=== PATIENT | female | born 1960 | race African-American/Black ===

== ENCOUNTER 2018-03-17 11:20 | Inpatient (IN) | payer MEDICAID ==
[~2018-03-17] VITALS: Ht 167.6 cm; Wt 103.9 kg
[~2018-03-17 11:20] MED LIST: AMLO10TA80 PO; ASPI-1159 PO; BENA20TA10 PO; CARV6.2548 PO; CLOP75TA16 PO; FLUT1DIS5 IH; FURO-151 PO; LIP40 PO; METF500T3 PO; POTA10TA15 PO; VENTOLIN INH
[2018-03-17 15:21] LABS: BASOPHILS % 0.6 % (0.0-2.0); EOSINOPHILS % 0.5 % (0.0-5.0); HEMATOCRIT. 35.9 % (36.0-48.0); HEMOGLOBIN. 11.9 g/dL (12.0-16.0); LYMPHOCYTES % 31.3 % (20.0-50.0); MEAN CORPUSCULAR HEMOGLOBIN 31.3 pg (28.0-32.0); MEAN CORPUSCULAR VOLUME 94.3 fL (81.0-99.0); MEAN PLATELET VOLUME 8.1 fl (7.4-10.4); MONOCYTES % 4.5 % (2.0-8.0); NEUTROPHILS % 63.1 % (40.0-76.0); PLATELET 187 x1000/uL (130-400); RED BLOOD CELL COUNT 3.81 mill/uL (4.2-5.4)
[2018-03-17 15:23] LABS: INR 1.1; PARTIAL THROMBOPLASTIN TIME 25.9 sec (23.4-31.0); PROTHROMBIN TIME 11.4 sec (9.1-11.1)
[2018-03-17 15:24] LABS: CHLORIDE 101 mEq/L (98-107)
[2018-03-17] MEDS ORDERED: MORPHINE SULFATE 4 MG/ML CPJ (NOT FOR IM USE) IV STA (15:28)
[2018-03-17] MEDS ORDERED: ONDANSETRON HCL 4MG/2ML INJ IV STA (15:28)
[2018-03-17] MEDS ORDERED: NITROGLYCERIN 0.4MG TABLET SL SL PRN (15:30)
[2018-03-17] MEDS ORDERED: ASPIRIN 81MG TABLET PO ONE (15:30)
[2018-03-17] MEDS ORDERED: NITROGLYCERIN OINT 1GM/INCH UDPKT TD ONE (15:30)
[2018-03-17] MEDS ORDERED: FUROSEMIDE 40MG/4ML VIAL IV ONE (15:30)
[2018-03-17] MEDS ORDERED: ACETAMINOPHEN 650MG/20.3ML UDC GT PRN (17:30)
[2018-03-17] MEDS ORDERED: HYDROCODONE/ACETAMINOPHEN 5/325MG TABLET PO PRN (17:30)
[2018-03-17] MEDS ORDERED: ACETAMINOPHEN 325MG TABLET PO PRN (17:30)
[2018-03-17] MEDS ORDERED: MAGNESIUM/ALUMINUM HYDROXIDE/SIMETHICONE 30ML UDC PO PRN (17:30)
[2018-03-17] MEDS ORDERED: ONDANSETRON HCL 4MG/2ML INJ IV PRN (17:30)
[2018-03-17] MEDS ORDERED: CLONIDINE 0.1MG TABLET PO PRN (17:30)
[2018-03-17] MEDS ORDERED: ACETAMINOPHEN 650MG SUPP PR PRN (17:30)
[2018-03-17 18:45] VITALS: BP 128/76
[2018-03-17 20:00] VITALS: BP 129/79
[2018-03-17] MEDS: FUROSEMIDE 40MG/4ML VIAL IVP SCH (21:33)
[2018-03-17] MEDS: ATORVASTATIN CALCIUM 40MG TABLET PO SCH (21:33)
[2018-03-17] MEDS: BENAZEPRIL 10MG TABLET PO SCH (21:34)
[2018-03-17] MEDS: CARVEDILOL 6.25 MG TABLET PO SCH (21:34)
[2018-03-18 00:40] VITALS: BP 122/72
[2018-03-18 01:03] LABS: CREATINE KINASE 43 IU/L (26-192); CREATINE KINASE MB FRACTION < 1.0 ng/mL (0.5-3.6)
[2018-03-18 04:00] VITALS: BP 131/53
[2018-03-18 04:07] LABS: CLARITY URINE CLEAR (CLEAR); COLOR URINE YELLOW (YELLOW); KETONES URINE NEGATIVE (NEGATIVE); LEUKOCYTE ESTERASE URINE NEGATIVE (NEGATIVE); NITRITE URINE NEGATIVE (NEGATIVE); OCCULT BLOOD URINE NEGATIVE (NEGATIVE); PROTEIN URINE NEGATIVE (NEGATIVE)
[2018-03-18 04:48] LABS: PHENCYCLIDINE URINE SCREEN NEGATIVE (NEGATIVE)
[2018-03-18 04:49] LABS: *AMPHETAMINES SCREEN URINE NEGATIVE (NEGATIVE); *BARBITURATES SCREEN URINE NEGATIVE (NEGATIVE); *BENZODIAZEPINES SCREEN URINE NEGATIVE (NEGATIVE); *COCAINE SCREEN URINE NEGATIVE (NEGATIVE); CANNABINOID URINE SCREEN NEGATIVE (NEGATIVE); METHADONE URINE SCREEN NEGATIVE (NEGATIVE); OPIATES URINE SCREEN NEGATIVE (NEGATIVE)
[2018-03-18 06:33] LABS: BASOPHILS % 0.5 % (0.0-2.0); EOSINOPHILS % 0.7 % (0.0-5.0); HEMATOCRIT. 34.4 % (36.0-48.0); HEMOGLOBIN. 11.5 g/dL (12.0-16.0); LYMPHOCYTES % 38.5 % (20.0-50.0); MEAN CORPUSCULAR HEMOGLOBIN 31.1 pg (28.0-32.0); MEAN CORPUSCULAR VOLUME 93.3 fL (81.0-99.0); MEAN PLATELET VOLUME 8.7 fl (7.4-10.4); MONOCYTES % 5.3 % (2.0-8.0); PLATELET 179 x1000/uL (130-400); RED BLOOD CELL COUNT 3.69 mill/uL (4.2-5.4); RED CELL DISTRIBUTION WIDTH 16.1 % (11.6-14.6)
[2018-03-18] MEDS: FUROSEMIDE 40MG/4ML VIAL IVP SCH ×4 (06:49→21:08)
[2018-03-18 06:51] LABS: CHLORIDE 99 mEq/L (98-107)
[2018-03-18 07:13] LABS: CREATINE KINASE 43 IU/L (26-192); CREATINE KINASE MB FRACTION < 1.0 ng/mL (0.5-3.6); HDL CHOLESTEROL 33 mg/dL (40-59); LDL CHOLESTEROL 131 mg/dL (5-100); T4 FREE 1.31 ng/dL (0.76-1.46)
[2018-03-18 07:33] VITALS: BP 107/63
[2018-03-18] MEDS: BENAZEPRIL 10MG TABLET PO SCH (09:00)
[2018-03-18] MEDS: CARVEDILOL 6.25 MG TABLET PO SCH (09:00)
[2018-03-18] MEDS ORDERED: AMLODIPINE 10MG TABLET PO SCH (09:00)
[2018-03-18] MEDS: CLOPIDOGREL 75MG TABLET PO SCH (09:40)
[2018-03-18] MEDS: METFORMIN HCL 500MG TABLET PO SCH (09:40)
[2018-03-18] MEDS: ASPIRIN 81MG TABLET PO SCH (09:40)
[2018-03-18] MEDS: HYDROCODONE/ACETAMINOPHEN 10/325MG TABLET PO PRN (09:56)
[2018-03-18] MEDS: IPRATROPIUM/ALBUTEROL 0.5-3(2.5)MG/3ML NEB INH SCH ×4 (10:06→20:49)
[2018-03-18 11:26] VITALS: BP 108/58
[2018-03-18] MEDS ORDERED: IPRATROPIUM/ALBUTEROL 0.5-3(2.5)MG/3ML NEB HHN PRN (13:45)
[2018-03-18 15:30] VITALS: BP 114/59
[2018-03-18] MEDS ORDERED: SENNOSIDES/DOCUSATE SOD 8.6/50MG TABLET PO PRN (16:45)
[2018-03-18 20:00] VITALS: BP 107/77
[2018-03-18] MEDS: BUDESONIDE 0.5MG/2ML NEB HHN SCH (20:48)
[2018-03-18] MEDS: ATORVASTATIN CALCIUM 40MG TABLET PO SCH (20:50)
[2018-03-18] MEDS: CARVEDILOL 3.125 MG TABLET PO SCH (20:50)
[2018-03-19] VITALS: BP 102/68
[2018-03-19] MEDS: IPRATROPIUM/ALBUTEROL 0.5-3(2.5)MG/3ML NEB INH SCH ×3 (00:15→20:33)
[2018-03-19 04:00] VITALS: BP 124/72
[2018-03-19] MEDS: FUROSEMIDE 40MG/4ML VIAL IVP SCH ×3 (05:41→21:43)
[2018-03-19 08:00] VITALS: BP 101/71
[2018-03-19 08:03] LABS: BASOPHILS % 0.5 % (0.0-2.0); EOSINOPHILS % 0.9 % (0.0-5.0); HEMATOCRIT. 35.3 % (36.0-48.0); HEMOGLOBIN. 11.5 g/dL (12.0-16.0); LYMPHOCYTES % 31.3 % (20.0-50.0); MEAN CORPUSCULAR HEMOGLOBIN 30.9 pg (28.0-32.0); MEAN CORPUSCULAR VOLUME 94.6 fL (81.0-99.0); MEAN PLATELET VOLUME 8.9 fl (7.4-10.4); MONOCYTES % 4.3 % (2.0-8.0); PLATELET 191 x1000/uL (130-400); RED BLOOD CELL COUNT 3.73 mill/uL (4.2-5.4); RED CELL DISTRIBUTION WIDTH 15.9 % (11.6-14.6)
[2018-03-19] MEDS: ASPIRIN 81MG TABLET PO SCH (08:57)
[2018-03-19] MEDS: CLOPIDOGREL 75MG TABLET PO SCH (08:57)
[2018-03-19] MEDS: METFORMIN HCL 500MG TABLET PO SCH (08:57)
[2018-03-19] MEDS: DOCUSATE SODIUM 100MG CAPSULE PO SCH ×2 (08:57→09:00)
[2018-03-19] MEDS: POLYETHYLENE GLYCOL 3350 (17GM) 1 DOSE PACK PO SCH ×3 (08:58→18:15)
[2018-03-19] MEDS: CARVEDILOL 3.125 MG TABLET PO SCH ×2 (09:00→21:43)
[2018-03-19 11:03] LABS: CHLORIDE 98 mEq/L (98-107)
[2018-03-19 11:10] LABS: PHOSPHORUS 4.9 mg/dL (2.5-4.9)
[2018-03-19 12:50] VITALS: BP 101/71
[2018-03-19 13:00] VITALS: BP 134/85
[2018-03-19] MEDS ORDERED: POTASSIUM CHLORIDE 20MEQ TABLET SR PO NR (13:30)
[2018-03-19] MEDS: POTASSIUM CHLORIDE 20MEQ TABLET SR PO SCH (18:15)
[2018-03-19 20:00] VITALS: BP 122/78
[2018-03-19] MEDS ORDERED: MAGNESIUM SULFATE 2 GM in DEXTROSE 5% WATER 50 ML IV SCH (20:00)
[2018-03-19] MEDS: BUDESONIDE 0.5MG/2ML NEB HHN SCH (20:33)
[2018-03-19] MEDS: ATORVASTATIN CALCIUM 40MG TABLET PO SCH (21:42)
[2018-03-20] VITALS: BP 124/83
[2018-03-20] MEDS: IPRATROPIUM/ALBUTEROL 0.5-3(2.5)MG/3ML NEB INH SCH ×6 (00:02→21:10)
[2018-03-20] MEDS: HYDROCODONE/ACETAMINOPHEN 10/325MG TABLET PO PRN (03:23)
[2018-03-20 04:00] VITALS: BP 132/87
[2018-03-20] MEDS: FUROSEMIDE 40MG/4ML VIAL IVP SCH (06:08)
[2018-03-20 07:30] LABS: BASOPHILS % 0.6 % (0.0-2.0); EOSINOPHILS % 0.7 % (0.0-5.0); HEMATOCRIT. 35.7 % (36.0-48.0); HEMOGLOBIN. 11.6 g/dL (12.0-16.0); LYMPHOCYTES % 27.2 % (20.0-50.0); MEAN CORPUSCULAR HEMOGLOBIN 30.8 pg (28.0-32.0); MEAN CORPUSCULAR VOLUME 94.7 fL (81.0-99.0); MEAN PLATELET VOLUME 8.8 fl (7.4-10.4); MONOCYTES % 4.5 % (2.0-8.0); PLATELET 197 x1000/uL (130-400); RED BLOOD CELL COUNT 3.77 mill/uL (4.2-5.4); RED CELL DISTRIBUTION WIDTH 15.8 % (11.6-14.6)
[2018-03-20 07:52] LABS: CHLORIDE 98 mEq/L (98-107)
[2018-03-20 08:00] VITALS: BP 119/78
[2018-03-20] MEDS: POLYETHYLENE GLYCOL 3350 (17GM) 1 DOSE PACK PO SCH ×2 (09:00→17:00)
[2018-03-20] MEDS: ASPIRIN 81MG TABLET PO SCH (09:22)
[2018-03-20] MEDS: DOCUSATE SODIUM 100MG CAPSULE PO SCH (09:22)
[2018-03-20] MEDS: POTASSIUM CHLORIDE 20MEQ TABLET SR PO SCH ×2 (09:23→17:16)
[2018-03-20] MEDS: BENAZEPRIL 10MG TABLET PO SCH (09:23)
[2018-03-20] MEDS: CARVEDILOL 3.125 MG TABLET PO SCH ×2 (09:23→21:45)
[2018-03-20] MEDS: CLOPIDOGREL 75MG TABLET PO SCH (09:23)
[2018-03-20] MEDS: METFORMIN HCL 500MG TABLET PO SCH (09:24)
[2018-03-20] MEDS: AMLODIPINE 5MG TABLET PO SCH (09:24)
[2018-03-20 12:00] VITALS: BP 110/69
[2018-03-20 16:00] VITALS: BP 120/74
[2018-03-20] MEDS ORDERED: FURO80TA3 MT (16:02)
[2018-03-20] MEDS ORDERED: AMLO5TAB88 PO (16:02)
[2018-03-20] MEDS ORDERED: LOT10 PO (16:02)
[2018-03-20] MEDS ORDERED: POTA20TA82 PO (16:02)
[2018-03-20] MEDS ORDERED: POLY17PO3 PO (16:02)
[2018-03-20] MEDS ORDERED: COR3 PO (16:02)
[2018-03-20] MEDS: FUROSEMIDE 40MG TABLET PO SCH ×2 (16:15→21:45)
[2018-03-20 20:56] VITALS: BP 127/80
[2018-03-20] MEDS: BUDESONIDE 0.5MG/2ML NEB HHN SCH (21:10)
[2018-03-20] MEDS: ATORVASTATIN CALCIUM 40MG TABLET PO SCH (21:44)
[2018-03-21] VITALS: BP 129/78
[2018-03-21 04:00] VITALS: BP 126/74
[2018-03-21] MEDS: IPRATROPIUM/ALBUTEROL 0.5-3(2.5)MG/3ML NEB INH SCH ×3 (04:25→11:56)
[2018-03-21] MEDS: FUROSEMIDE 40MG TABLET PO SCH (06:07)
[2018-03-21 08:00] VITALS: BP 130/87
[2018-03-21] MEDS: BUDESONIDE 0.5MG/2ML NEB HHN SCH (08:23)
[2018-03-21] MEDS: POLYETHYLENE GLYCOL 3350 (17GM) 1 DOSE PACK PO SCH (09:00)
[2018-03-21] MEDS: DOCUSATE SODIUM 100MG CAPSULE PO SCH (09:12)
[2018-03-21] MEDS: BENAZEPRIL 10MG TABLET PO SCH (09:13)
[2018-03-21] MEDS: CARVEDILOL 3.125 MG TABLET PO SCH (09:13)
[2018-03-21] MEDS: ASPIRIN 81MG TABLET PO SCH (09:13)
[2018-03-21] MEDS: CLOPIDOGREL 75MG TABLET PO SCH (09:13)
[2018-03-21] MEDS: AMLODIPINE 5MG TABLET PO SCH (09:13)
[2018-03-21] MEDS: POTASSIUM CHLORIDE 20MEQ TABLET SR PO SCH (09:13)
[2018-03-21] MEDS: METFORMIN HCL 500MG TABLET PO SCH (09:13)
[2018-03-21 11:35] VITALS: BP 130/87
[2018-03-21 12:00] VITALS: BP 114/68
== END 2018-03-21 12:55 | disposition home or self-care (01) | DRG 194 ==
LOC: ER 12:20 → ENRESERV 15:42 → EDBEDREQTM 15:54 → EDBEDREQ 15:54 → 7WST 16:07 → EDBEDREQTM 16:09
PROVIDERS: ADMIT Internal Medicine; ATTEND Internal Medicine
DX: I11.0 Hypertensive heart disease with heart failure (principal); J96.00 Acute respiratory failure, unspecified whether with hypoxia or hypercapnia; I27.20 Pulmonary hypertension, unspecified; D64.9 Anemia, unspecified; E11.9 Type 2 diabetes mellitus without complications; E78.00 Pure hypercholesterolemia, unspecified; I25.5 Ischemic cardiomyopathy; I50.23 Acute on chronic systolic (congestive) heart failure; E78.5 Hyperlipidemia, unspecified; I25.10 Atherosclerotic heart disease of native coronary artery without angina pectoris; F17.210 Nicotine dependence, cigarettes, uncomplicated; J44.9 Chronic obstructive pulmonary disease, unspecified; I08.0 Rheumatic disorders of both mitral and aortic valves; M25.511 Pain in right shoulder; K59.00 Constipation, unspecified; Z60.2 Problems related to living alone; Z79.899 Other long term (current) drug therapy; I25.2 Old myocardial infarction; Z86.73 Personal history of transient ischemic attack (TIA), and cerebral infarction without residual deficits; Z98.891 History of uterine scar from previous surgery; Z95.5 Presence of coronary angioplasty implant and graft; Z79.82 Long term (current) use of aspirin; Z79.84 Long term (current) use of oral hypoglycemic drugs; M94.0 Chondrocostal junction syndrome [Tietze]
CPT/HCPCS: 36415; 71045; 73030; 80048; 80061; 80305; 82550; 82553; 82962; 83036; 83735; 83880; 84100; 84439; 84443; 84481; 84484; 93005; 93306; 93970; 94640; 96374; 96375; 97162; 99285; J1940; J2270; J3475; J7050; J7060; J7620; J7626

== ENCOUNTER 2018-04-18 18:27 | Inpatient (IN) | payer OTHER ==
[~2018-04-18] VITALS: Ht 167.6 cm; Wt 110.7 kg
[~2018-04-18 18:27] MED LIST changes: -AMLO10TA80 PO; +AMLO5TAB88 PO; -BENA20TA10 PO; -CARV6.2548 PO; +COR3 PO; -FURO-151 PO; +FURO80TA3 MT; +LOT10 PO; +POLY17PO3 PO; +POTA20TA82 PO
[2018-04-18] MEDS ORDERED: ALBUTEROL (0.083%) 2.5MG/3ML NEB HHN STA (23:05)
[2018-04-18] MEDS ORDERED: IPRATROPIUM BROMIDE (0.02%) 0.5MG/2.5ML NEB HHN STA (23:05)
[2018-04-18] MEDS ORDERED: NITROGLYCERIN OINT 1GM/INCH UDPKT TD ONE (23:15)
[2018-04-18] MEDS ORDERED: ASPIRIN 81MG TABLET PO ONE (23:15)
[2018-04-18 23:50] LABS: BASOPHILS % 0.7 % (0.0-2.0); EOSINOPHILS % 0.6 % (0.0-5.0); HEMATOCRIT. 38.3 % (36.0-48.0); HEMOGLOBIN. 12.5 g/dL (12.0-16.0); LYMPHOCYTES % 35.1 % (20.0-50.0); MEAN CORPUSCULAR VOLUME 95.1 fL (81.0-99.0); MEAN PLATELET VOLUME 10.1 fl (7.4-10.4); MONOCYTES % 5.5 % (2.0-8.0); NEUTROPHILS % 58.1 % (40.0-76.0); PLATELET 188 x1000/uL (130-400); RED BLOOD CELL COUNT 4.03 mill/uL (4.2-5.4); RED CELL DISTRIBUTION WIDTH 17.3 % (11.6-14.6)
[2018-04-19 00:57] LABS: CHLORIDE 98 mEq/L (98-107)
[2018-04-19] MEDS ORDERED: ONDANSETRON HCL 4MG/2ML INJ IV PRN (12:45)
[2018-04-19] MEDS ORDERED: GUAIFENESIN 200MG/10ML SUGAR FREE UDC PO PRN (12:45)
[2018-04-19] MEDS ORDERED: HYDROCODONE/ACETAMINOPHEN 5/325MG TABLET PO PRN (12:45)
[2018-04-19] MEDS ORDERED: IPRATROPIUM/ALBUTEROL 0.5-3(2.5)MG/3ML NEB INH PRN (12:45)
[2018-04-19] MEDS ORDERED: MAGNESIUM/ALUMINUM HYDROXIDE/SIMETHICONE 30ML UDC PO PRN (12:45)
[2018-04-19 16:00] VITALS: BP 123/84
[2018-04-19] MEDS ORDERED: POLYETHYLENE GLYCOL PO SCH (17:00)
[2018-04-19 18:00] VITALS: BP 108/72
[2018-04-19] MEDS ORDERED: DIPHENHYDRAMINE HCL/ZINC ACET 28 GM CREAM TOP PRN (18:00)
[2018-04-19] MEDS: POLYETHYLENE GLYCOL 3350 (17GM) 1 DOSE PACK PO SCH (18:34)
[2018-04-19] MEDS: ATORVASTATIN CALCIUM 40MG TABLET PO SCH (18:34)
[2018-04-19] MEDS: FUROSEMIDE 40MG/4ML VIAL IVP SCH (18:50)
[2018-04-19] MEDS ORDERED: DEXTROSE 50% WATER 50ML SYRINGE IV PRN (19:45)
[2018-04-19 20:00] VITALS: BP 95/70
[2018-04-19 20:29] LABS: CREATINE KINASE 53 IU/L (26-192)
[2018-04-19 20:30] LABS: CREATINE KINASE MB FRACTION < 1.0 ng/mL (0.5-3.6)
[2018-04-19] MEDS: CARVEDILOL 3.125 MG TABLET PO SCH (21:00)
[2018-04-19] MEDS: BUDESONIDE 0.5MG/2ML NEB HHN SCH (21:22)
[2018-04-19] MEDS: IPRATROPIUM/ALBUTEROL 0.5-3(2.5)MG/3ML NEB HHN SCH (21:22)
[2018-04-19] MEDS: BLOOD SUGAR DIAGNOSTIC STRIP TEST SCH (21:59)
[2018-04-19] MEDS ORDERED: INSULIN GLARGINE UD 100 UNITS/ML SYR SUBCUT SCH (22:00)
[2018-04-19] MEDS: INSULIN LISPRO 100 UNITS/ML SUBCUT SCH (22:52)
[2018-04-19 23:08] VITALS: BP 95/70
[2018-04-20] VITALS (7 sets, daily range): BP systolic 95–111; BP diastolic 54–83
[2018-04-20] MEDS: INSULIN GLARGINE UD 100 UNITS/ML SYR SUBCUT SCH ×2 (00:26→10:44)
[2018-04-20] MEDS: IPRATROPIUM/ALBUTEROL 0.5-3(2.5)MG/3ML NEB HHN SCH ×4 (01:45→21:13)
[2018-04-20] MEDS: BLOOD SUGAR DIAGNOSTIC STRIP TEST SCH ×4 (05:56→20:52)
[2018-04-20] MEDS: INSULIN LISPRO 100 UNITS/ML SUBCUT SCH ×3 (06:13→21:11)
[2018-04-20 07:40] LABS: BASOPHILS % 0.5 % (0.0-2.0); EOSINOPHILS % 0.5 % (0.0-5.0); HEMATOCRIT. 37.2 % (36.0-48.0); HEMOGLOBIN. 12.3 g/dL (12.0-16.0); LYMPHOCYTES % 41.7 % (20.0-50.0); MEAN CORPUSCULAR HEMOGLOBIN 31.3 pg (28.0-32.0); MEAN CORPUSCULAR VOLUME 94.1 fL (81.0-99.0); MEAN PLATELET VOLUME 8.9 fl (7.4-10.4); MONOCYTES % 5.1 % (2.0-8.0); NEUTROPHILS % 52.2 % (40.0-76.0); PLATELET 164 x1000/uL (130-400); RED BLOOD CELL COUNT 3.95 mill/uL (4.2-5.4); RED CELL DISTRIBUTION WIDTH 16.9 % (11.6-14.6)
[2018-04-20] MEDS: BUDESONIDE 0.5MG/2ML NEB HHN SCH ×2 (08:50→21:13)
[2018-04-20] MEDS ORDERED: MEDICATION NOT ON FORMULARY EA (Amlodipine Besylate 5 MG) PO SCH (09:00)
[2018-04-20] MEDS ORDERED: FUROSEMIDE 40MG/4ML VIAL IVP SCH (09:00)
[2018-04-20] MEDS: ASPIRIN 81MG TABLET PO SCH (09:00)
[2018-04-20] MEDS ORDERED: MEDICATION NOT ON FORMULARY EA (Clopidogrel Bisulfate (Plavix) 75 MG) PO SCH (09:00)
[2018-04-20 09:10] LABS: CHLORIDE 98 mEq/L (98-107)
[2018-04-20 09:17] LABS: LDL CHOLESTEROL 79 mg/dL (5-100)
[2018-04-20 09:18] LABS: CREATINE KINASE 49 IU/L (26-192); CREATINE KINASE MB FRACTION < 1.0 ng/mL (0.5-3.6); HDL CHOLESTEROL 25 mg/dL (40-59); T4 FREE 1.32 ng/dL (0.76-1.46)
[2018-04-20] MEDS: CLOPIDOGREL 75MG TABLET PO SCH (10:16)
[2018-04-20] MEDS: FUROSEMIDE 40MG/4ML VIAL IVP SCH ×2 (10:16→16:45)
[2018-04-20] MEDS: CARVEDILOL 3.125 MG TABLET PO SCH ×2 (10:17→20:46)
[2018-04-20] MEDS: POLYETHYLENE GLYCOL 3350 (17GM) 1 DOSE PACK PO SCH ×2 (10:18→16:45)
[2018-04-20] MEDS: AMLODIPINE 5MG TABLET PO SCH (10:18)
[2018-04-20] MEDS: BENAZEPRIL 10MG TABLET PO SCH (10:23)
[2018-04-20] MEDS: LORATADINE 10MG TABLET PO SCH (10:42)
[2018-04-20] MEDS ORDERED: INSULIN LISPRO 100 UNITS/ML SUBCUT SCH (12:15)
[2018-04-20] MEDS ORDERED: SODIUM BICARBONATE 4% (2.4MEQ) 5ML VIAL IV ONE (14:17)
[2018-04-20] MEDS ORDERED: LIDOCAINE HCL 1% 20ML VIAL (Pyxis) INJ ONE (14:17)
[2018-04-20] MEDS: ATORVASTATIN CALCIUM 40MG TABLET PO SCH (16:44)
[2018-04-20] MEDS ORDERED: METFORMIN HCL 500MG TABLET PO SCH (17:00)
[2018-04-20] MEDS ORDERED: DEXTROSE 50% WATER 50ML SYRINGE IV PRN (20:00)
[2018-04-20] MEDS ORDERED: INSULIN GLARGINE UD 100 UNITS/ML SYR SUBCUT SCH (22:00)
[2018-04-20] MEDS: DIPHENHYDRAMINE 50MG CAPSULE PO PRN (22:00)
[2018-04-21] VITALS: BP 96/68
[2018-04-21] MEDS: IPRATROPIUM/ALBUTEROL 0.5-3(2.5)MG/3ML NEB HHN SCH ×4 (03:00→20:58)
[2018-04-21 04:00] VITALS: BP 99/65
[2018-04-21] MEDS: ACETAMINOPHEN 325MG TABLET PO PRN (05:41)
[2018-04-21] MEDS: BLOOD SUGAR DIAGNOSTIC STRIP TEST SCH ×4 (05:53→21:41)
[2018-04-21] MEDS: INSULIN LISPRO 100 UNITS/ML SUBCUT SCH ×4 (06:22→21:00)
[2018-04-21] MEDS ORDERED: GLIPIZIDE 5MG XL TABLET PO SCH (07:15)
[2018-04-21 07:25] LABS: KETONES URINE TRACE (NEGATIVE); LEUKOCYTE ESTERASE URINE TRACE (NEGATIVE); NITRITE URINE NEGATIVE (NEGATIVE); OCCULT BLOOD URINE NEGATIVE (NEGATIVE); PROTEIN URINE NEGATIVE (NEGATIVE); SPECIFIC GRAVITY URINE 1.019 (1.005-1.030)
[2018-04-21 07:28] LABS: CLARITY URINE HAZY (CLEAR); COLOR URINE DARK YELLOW (YELLOW)
[2018-04-21 07:41] LABS: *AMPHETAMINES SCREEN URINE NEGATIVE (NEGATIVE); *BARBITURATES SCREEN URINE NEGATIVE (NEGATIVE); *BENZODIAZEPINES SCREEN URINE NEGATIVE (NEGATIVE); *COCAINE SCREEN URINE NEGATIVE (NEGATIVE)
[2018-04-21 07:42] LABS: CANNABINOID URINE SCREEN NEGATIVE (NEGATIVE); METHADONE URINE SCREEN NEGATIVE (NEGATIVE); OPIATES URINE SCREEN NEGATIVE (NEGATIVE); PHENCYCLIDINE URINE SCREEN NEGATIVE (NEGATIVE)
[2018-04-21 08:00] VITALS: BP 103/68
[2018-04-21] MEDS: AMLODIPINE 5MG TABLET PO SCH (09:00)
[2018-04-21] MEDS: BUDESONIDE 0.5MG/2ML NEB HHN SCH ×2 (09:18→20:57)
[2018-04-21] MEDS: FUROSEMIDE 40MG/4ML VIAL IVP SCH ×2 (09:47→17:38)
[2018-04-21] MEDS: LORATADINE 10MG TABLET PO SCH (09:47)
[2018-04-21] MEDS: CLOPIDOGREL 75MG TABLET PO SCH (09:47)
[2018-04-21] MEDS: BENAZEPRIL 10MG TABLET PO SCH (09:49)
[2018-04-21] MEDS: ASPIRIN 81MG TABLET PO SCH (09:50)
[2018-04-21] MEDS: CARVEDILOL 3.125 MG TABLET PO SCH ×2 (09:52→21:00)
[2018-04-21] MEDS: POLYETHYLENE GLYCOL 3350 (17GM) 1 DOSE PACK PO SCH ×2 (09:53→17:00)
[2018-04-21 10:32] LABS: BASOPHILS % 0.5 % (0.0-2.0); EOSINOPHILS % 0.5 % (0.0-5.0); HEMATOCRIT. 37.6 % (36.0-48.0); LYMPHOCYTES % 30.1 % (20.0-50.0); MEAN CORPUSCULAR HEMOGLOBIN 30.3 pg (28.0-32.0); MEAN CORPUSCULAR VOLUME 94.7 fL (81.0-99.0); MEAN PLATELET VOLUME 9.5 fl (7.4-10.4); MONOCYTES % 3.9 % (2.0-8.0); PLATELET 169 x1000/uL (130-400); RED BLOOD CELL COUNT 3.97 mill/uL (4.2-5.4); RED CELL DISTRIBUTION WIDTH 17.5 % (11.6-14.6)
[2018-04-21 10:36] LABS: CHLORIDE 98 mEq/L (98-107)
[2018-04-21] MEDS: ENOXAPARIN 30MG/0.3ML SYR SUBCUT SCH ×2 (11:34→21:57)
[2018-04-21] MEDS: INSULIN GLARGINE UD 100 UNITS/ML SYR SUBCUT SCH ×2 (13:35→22:00)
[2018-04-21 16:00] VITALS: BP 102/72
[2018-04-21] MEDS: ATORVASTATIN CALCIUM 40MG TABLET PO SCH (17:38)
[2018-04-21] MEDS: GLIPIZIDE 5MG XL TABLET PO SCH (17:39)
[2018-04-21] MEDS: METFORMIN HCL 500MG TABLET PO SCH (17:40)
[2018-04-21] MEDS: DIPHENHYDRAMINE 50MG CAPSULE PO PRN (17:44)
[2018-04-21 20:00] VITALS: BP 95/58
[2018-04-21] MEDS ORDERED: IOHEXOL-350 100 ML BOTTLE ONE (23:19)
[2018-04-22] VITALS: BP 105/60
[2018-04-22] MEDS: IPRATROPIUM/ALBUTEROL 0.5-3(2.5)MG/3ML NEB HHN SCH ×4 (01:37→20:13)
[2018-04-22 04:00] VITALS: BP 114/65
[2018-04-22] MEDS: BLOOD SUGAR DIAGNOSTIC STRIP TEST SCH ×4 (05:45→21:00)
[2018-04-22 06:12] LABS: BASOPHILS % 0.7 % (0.0-2.0); EOSINOPHILS % 0.8 % (0.0-5.0); HEMATOCRIT. 36.8 % (36.0-48.0); HEMOGLOBIN. 12.2 g/dL (12.0-16.0); LYMPHOCYTES % 35.3 % (20.0-50.0); MEAN CORPUSCULAR HEMOGLOBIN 31.1 pg (28.0-32.0); MEAN CORPUSCULAR VOLUME 93.6 fL (81.0-99.0); MONOCYTES % 4.9 % (2.0-8.0); NEUTROPHILS % 58.3 % (40.0-76.0); PLATELET 165 x1000/uL (130-400); RED BLOOD CELL COUNT 3.93 mill/uL (4.2-5.4); RED CELL DISTRIBUTION WIDTH 17.1 % (11.6-14.6)
[2018-04-22] MEDS: INSULIN LISPRO 100 UNITS/ML SUBCUT SCH ×4 (06:24→21:00)
[2018-04-22 07:13] LABS: CHLORIDE 98 mEq/L (98-107)
[2018-04-22 08:00] VITALS: BP 104/66
[2018-04-22] MEDS: BUDESONIDE 0.5MG/2ML NEB HHN SCH ×2 (08:28→20:13)
[2018-04-22] MEDS: AMLODIPINE 5MG TABLET PO SCH (09:00)
[2018-04-22] MEDS: POLYETHYLENE GLYCOL 3350 (17GM) 1 DOSE PACK PO SCH ×2 (09:00→17:00)
[2018-04-22] MEDS: FUROSEMIDE 40MG/4ML VIAL IVP SCH ×2 (09:40→19:16)
[2018-04-22] MEDS: ENOXAPARIN 30MG/0.3ML SYR SUBCUT SCH ×2 (09:40→22:03)
[2018-04-22] MEDS: CARVEDILOL 3.125 MG TABLET PO SCH ×2 (09:41→21:00)
[2018-04-22] MEDS: ASPIRIN 81MG TABLET PO SCH (09:42)
[2018-04-22] MEDS: GLIPIZIDE 5MG XL TABLET PO SCH ×2 (09:42→19:17)
[2018-04-22] MEDS: METFORMIN HCL 500MG TABLET PO SCH ×2 (09:42→17:15)
[2018-04-22] MEDS: BENAZEPRIL 10MG TABLET PO SCH (09:43)
[2018-04-22] MEDS: LORATADINE 10MG TABLET PO SCH (09:43)
[2018-04-22] MEDS: CLOPIDOGREL 75MG TABLET PO SCH (10:21)
[2018-04-22] MEDS: INSULIN GLARGINE UD 100 UNITS/ML SYR SUBCUT SCH ×2 (10:32→23:55)
[2018-04-22 12:00] VITALS: BP 102/64
[2018-04-22] MEDS: DOCUSATE SODIUM 100MG CAPSULE PO PRN (19:16)
[2018-04-22] MEDS: ATORVASTATIN CALCIUM 40MG TABLET PO SCH (19:16)
[2018-04-22] MEDS ORDERED: BUDESONIDE 0.5MG/2ML NEB ONE (21:14)
[2018-04-23] MEDS: IPRATROPIUM/ALBUTEROL 0.5-3(2.5)MG/3ML NEB HHN SCH ×3 (01:54→15:01)
[2018-04-23] MEDS: BLOOD SUGAR DIAGNOSTIC STRIP TEST SCH ×4 (06:45→21:07)
[2018-04-23] MEDS: GLIPIZIDE 5MG XL TABLET PO SCH (07:15)
[2018-04-23] MEDS: METFORMIN HCL 500MG TABLET PO SCH ×2 (07:15→18:03)
[2018-04-23] MEDS: INSULIN LISPRO 100 UNITS/ML SUBCUT SCH ×4 (07:15→21:00)
[2018-04-23 08:00] VITALS: BP 102/71
[2018-04-23] MEDS: BENAZEPRIL 10MG TABLET PO SCH (09:00)
[2018-04-23] MEDS: POLYETHYLENE GLYCOL 3350 (17GM) 1 DOSE PACK PO SCH ×2 (09:00→17:00)
[2018-04-23] MEDS: AMLODIPINE 5MG TABLET PO SCH (09:00)
[2018-04-23 09:31] LABS: CHLORIDE 100 mEq/L (98-107)
[2018-04-23] MEDS: INSULIN GLARGINE UD 100 UNITS/ML SYR SUBCUT SCH ×2 (10:20→21:07)
[2018-04-23] MEDS: CLOPIDOGREL 75MG TABLET PO SCH (10:23)
[2018-04-23] MEDS: ENOXAPARIN 30MG/0.3ML SYR SUBCUT SCH ×2 (10:23→20:13)
[2018-04-23] MEDS: ASPIRIN 81MG TABLET PO SCH (10:23)
[2018-04-23] MEDS: LORATADINE 10MG TABLET PO SCH (10:23)
[2018-04-23] MEDS: FUROSEMIDE 40MG/4ML VIAL IVP SCH ×2 (10:23→18:03)
[2018-04-23 12:00] VITALS: BP 100/66
[2018-04-23] MEDS: ACETAMINOPHEN 325MG TABLET PO PRN (12:55)
[2018-04-23] MEDS: ATORVASTATIN CALCIUM 40MG TABLET PO SCH (18:03)
[2018-04-23] MEDS: DOCUSATE SODIUM 100MG CAPSULE PO PRN (18:03)
[2018-04-23 20:00] VITALS: BP 108/67
[2018-04-23] MEDS: CARVEDILOL 6.25 MG TABLET PO SCH (20:13)
[2018-04-23] MEDS: DIPHENHYDRAMINE 50MG CAPSULE PO PRN (20:13)
[2018-04-23] MEDS ORDERED: LORAZEPAM 2MG/ML CPJ IV PRN (20:15)
[2018-04-24] VITALS: BP 105/67
[2018-04-24 04:00] VITALS: BP 100/70
[2018-04-24] MEDS: BLOOD SUGAR DIAGNOSTIC STRIP TEST SCH ×3 (06:21→16:57)
[2018-04-24] MEDS: INSULIN LISPRO 100 UNITS/ML SUBCUT SCH ×3 (07:15→16:57)
[2018-04-24 08:00] VITALS: BP 105/72
[2018-04-24] MEDS: IPRATROPIUM/ALBUTEROL 0.5-3(2.5)MG/3ML NEB HHN SCH ×2 (08:02→13:20)
[2018-04-24] MEDS ORDERED: GLIPIZIDE 5MG XL TABLET PO SCH (09:00)
[2018-04-24] MEDS: POLYETHYLENE GLYCOL 3350 (17GM) 1 DOSE PACK PO SCH ×2 (09:00→16:57)
[2018-04-24] MEDS: CARVEDILOL 6.25 MG TABLET PO SCH (09:00)
[2018-04-24] MEDS: AMLODIPINE 5MG TABLET PO SCH (09:00)
[2018-04-24] MEDS: BENAZEPRIL 10MG TABLET PO SCH (09:00)
[2018-04-24] MEDS: CLOPIDOGREL 75MG TABLET PO SCH (09:32)
[2018-04-24] MEDS: METFORMIN HCL 500MG TABLET PO SCH ×2 (09:32→17:57)
[2018-04-24] MEDS: ASPIRIN 81MG TABLET PO SCH (09:32)
[2018-04-24] MEDS: LORATADINE 10MG TABLET PO SCH (09:32)
[2018-04-24] MEDS: ENOXAPARIN 30MG/0.3ML SYR SUBCUT SCH (09:32)
[2018-04-24] MEDS: FUROSEMIDE 40MG/4ML VIAL IVP SCH (09:33)
[2018-04-24] MEDS: INSULIN GLARGINE UD 100 UNITS/ML SYR SUBCUT SCH (10:18)
[2018-04-24 12:00] VITALS: BP 92/60
[2018-04-24 16:00] VITALS: BP 103/67
[2018-04-24 17:40] VITALS: BP 103/67
[2018-04-24] MEDS: ATORVASTATIN CALCIUM 40MG TABLET PO SCH (17:58)
[2018-04-24] MEDS ORDERED: CARVEDILOL 6.25 MG TABLET PO SCH (21:00)
[2018-04-25] MEDS ORDERED: BENAZEPRIL 10MG TABLET PO SCH (09:00)
[2018-04-25] MEDS ORDERED: FUROSEMIDE 100MG/10ML VIAL IVP SCH (09:00)
== END 2018-04-24 18:50 | disposition home health service (06) | DRG 133 ==
LOC: ER 20:47 → 5WST 04-19 02:50 → EDBEDREQ 04-19 02:51 → EDBEDREQTM 04-19 02:51 → ENRESERV 04-19 12:41
PROVIDERS: ADMIT Internal Medicine; ATTEND Internal Medicine
DX: J96.00 Acute respiratory failure, unspecified whether with hypoxia or hypercapnia (principal); I50.43 Acute on chronic combined systolic (congestive) and diastolic (congestive) heart failure; E11.22 Type 2 diabetes mellitus with diabetic chronic kidney disease; I42.0 Dilated cardiomyopathy; E11.65 Type 2 diabetes mellitus with hyperglycemia; I13.0 Hypertensive heart and chronic kidney disease with heart failure and stage 1 through stage 4 chronic kidney disease, or unspecified chronic kidney disease; J44.1 Chronic obstructive pulmonary disease with (acute) exacerbation; D63.8 Anemia in other chronic diseases classified elsewhere; I25.5 Ischemic cardiomyopathy; Z79.4 Long term (current) use of insulin; E66.09 Other obesity due to excess calories; E78.00 Pure hypercholesterolemia, unspecified; E78.5 Hyperlipidemia, unspecified; F17.210 Nicotine dependence, cigarettes, uncomplicated; I25.10 Atherosclerotic heart disease of native coronary artery without angina pectoris; I25.2 Old myocardial infarction; I35.0 Nonrheumatic aortic (valve) stenosis; N18.9 Chronic kidney disease, unspecified; Z86.73 Personal history of transient ischemic attack (TIA), and cerebral infarction without residual deficits; Z95.5 Presence of coronary angioplasty implant and graft; Z98.891 History of uterine scar from previous surgery; Z99.81 Dependence on supplemental oxygen; Z68.39 Body mass index [BMI] 39.0-39.9, adult
CPT/HCPCS: 36415; 71045; 71275; 80048; 80061; 80305; 82550; 82553; 82962; 83880; 84439; 84443; 84481; 84484; 93005; 93306; 93970; 94640; 97162; 99285; J1650; J1815; J1940; J2405; J3490; J7611; J7620; J7626; Q0163; Q9967